=== PATIENT | female | born 1990 | race Caucasian/White ===

== ENCOUNTER 2017-01-11 16:37 | Emergency (ER) | payer MEDICAID, OTHER ==
[2017-01-11 17:00] LABS: BILIRUBIN,URINE NEGATIVE (NEGATIVE)
[2017-01-11 17:02] LABS: UA CHARGE (STRIP ONLY) YES; UR CULTURE IF IND NOT INDICATED
[2017-01-11 17:03] LABS: HCG UR QUAL NEGATIVE
[2017-01-11] MEDS ORDERED: KETOROLAC 30 MG/ML VIAL IVP STA (17:07)
--- NOTE | 2017-01-11 17:11 | ED Physician Documentation ---
PD HPI ABD PAIN - Stated complaint Stated Complaint: L ABD PAIN - Chief complaint Chief Complaint: Abd Pain - History obtained from History obtained from: Patient - History of Present Illness Timing - onset: Other (26-year-old G0 with IUD in place for the last 6 months presents with ongoing left pelvic pain that was intermittent but mild before today, today it has been severe. At times it doubles her over and when it is severe she feels nauseous. There is no associated fever. She has had some spotting but that is not abnormal since she has had the IUD put in.) Review of Systems Constitutional: denies: Fever, Chills GI: denies: Vomiting, Diarrhea : denies: Dysuria, Frequency, Hematuria, Discharge PD PAST MEDICAL HISTORY - Past Medical History Past Medical History: No - Past Surgical History Past Surgical History: No - Allergies Allergies/Adverse Reactions: Allergies Allergy/AdvReac Type Severity Reaction Status Date / Time hydrocodone bitartrate * AdvReac Emesis Verified 01/11/17 16:51 [From Vicodin] oxycodone HCl * AdvReac Emesis Verified 01/11/17 16:51 [From Percocet] - Social History Does the pt smoke?: No Smoking Status: Never smoker Does the pt drink ETOH?: No Does the pt have substance abuse?: No - Immunizations Immunizations are current?: Yes PD ED PE NORMAL - Vitals Vital signs reviewed: Yes - General General: Alert and oriented X 3, Other (Intermittently overtly in pain, otherwise sometimes comfortable) - Cardiac Cardiac: RRR, No murmur - Respiratory Respiratory: No respiratory distress, Clear bilaterally - Abdomen Abdomen: Normal bowel sounds, Soft, Other (Tenderness at the left anterior pelvic brim without surgical signs) - Female Female : Slash Trimmer present (Mikhail Morales RN), Other (Some bloody purulent discharge but no cervical motion or adnexal tenderness.) - Extremities Extremities: No deformity, No tenderness to palpate, No edema, No calf tenderness / cord - Neuro Neuro: Alert and oriented X 3, Normal speech - Psych Psych: Normal mood, Normal affect Results - Vitals Vitals: Vital Signs - 24 hr 01/11/17 01/11/17 16:44 18:40 Temperature 36.8 C Heart Rate 83 74 Respiratory 20 16 Rate Blood Pressure 142/79 H 117/75 O2 Saturation 98 97 Oxygen O2 Source Room air - Labs Labs: Laboratory Tests 01/11/17 01/11/17 01/11/17 16:54 17:36 17:36 WBC 7.9 RBC 4.74 Hgb 14.5 Hct 41.4 MCV 87.3 MCH 30.5 MCHC 34.9 RDW 12.6 Plt Count 200 MPV 8.7 Neut # 5.1 Lymph # 2.2 Baxter # 0.3 Eos # 0.2 Baso # 0.1 Absolute Nucleated RBC 0.00 Nucleated RBCs 0.1 Sodium 137 Potassium 3.8 Chloride 104 Carbon Dioxide 27 Anion Gap 6.0 BUN 9 Creatinine 0.8 Estimated GFR (MDRD) 87 L Glucose 100 Calcium 9.1 Total Bilirubin 0.4 AST 17 ALT 13 Alkaline Phosphatase 51 Total Protein 7.1 Albumin 4.5 Globulin 2.6 Albumin/Globulin Ratio 1.7 Lipase 31 Urine Color YELLOW Urine Clarity CLEAR Urine pH 6.0 Ur Specific [place] >=1.030 H Urine Protein NEGATIVE Urine Glucose (UA) NEGATIVE Urine Ketones NEGATIVE Urine Occult Blood TRACE-INTA Urine Nitrite NEGATIVE Urine Bilirubin NEGATIVE Urine Urobilinogen 0.2 (NORMAL) Ur Leukocyte Esterase NEGATIVE Ur Microscopic Review NOT INDICATED Urine Culture Comments NOT INDICATED Urine HCG, Qual NEGATIVE - Rads (name of study) Pelvic Sono Radiology: EMP read contemporaneously (IUD in the endometrium with prominent surrounding vascularity) PD MEDICAL DECISION MAKING - ED course ED course: 26-year-old woman in a monogamous relationship with an IUD in place presents with worsening chronic left pelvic cramping. Pelvic ultrasound as shown. At her request the IUD was removed during pelvic examination, she thinks that is the source. There is no evidence of significant infection,/PID. She declines prescription pain medication. Departure - Departure Disposition: 01 Home, Self Care Clinical Impression: Pelvic pain, Encounter for IUD removal Condition: Good Record reviewed to determine appropriate education?: Yes Instructions: ED Pelvic Pain [facility] Comments: Tylenol or ibuprofen as needed for pain. Return if worse or if not better in 12 hours.
[2017-01-11] MEDS ORDERED: KETOROLAC 30 MG/ML VIAL ONE (17:26)
[2017-01-11 17:58] LABS: BASOPHILS # (AUTO) 0.1 10^3/uL (0.0-0.1); BASOPHILS % (AUTO) 0.6 %; EOSINOPHILS # (AUTO) 0.2 10^3/uL (0.0-0.7); EOSINOPHILS % (AUTO) 3.1 %; HCT - HEMATOCRIT 41.4 % (37.0-47.0); HGB - HEMOGLOBIN 14.5 g/dL (12.0-16.0); LYMPHOCYTES # (AUTO) 2.2 10^3/uL (1.5-3.5); LYMPHOCYTES % (AUTO) 28.2 %; MEAN CORPUSCULAR HEMOGLOBIN 30.5 pg (27.0-31.0); MEAN CORPUSCULAR HGB CONC 34.9 g/dL (32.0-36.0); MEAN CORPUSCULAR VOLUME 87.3 fL (81.0-99.0); MEAN PLATELET VOLUME 8.7 fL (7.9-10.8); MONOCYTES # (AUTO) 0.3 10^3/uL (0.0-1.0); MONOCYTES % (AUTO) 4.1 %; NEUTROPHILS # (AUTO) 5.1 10^3/uL (1.5-6.6); NUCLEATED RED BLOOD CELLS AUTO 0.1 /100WBC; RED BLOOD COUNT 4.74 10^6/uL (4.20-5.40); RED CELL DISTRIBUTION WIDTH 12.6 % (12.0-15.0); UNCORRECTED WHITE BLOOD COUNT 7.9 x10^3/uL; WHITE BLOOD COUNT 7.9 x10^3/uL (4.8-10.8)
[2017-01-11 18:16] LABS: ALBUMIN/GLOBULIN RATIO 1.7 (1.0-2.2); BILIRUBIN,TOTAL 0.4 mg/dL (0.2-1.0); CALCIUM 9.1 mg/dL (8.5-10.3); CREATININE 0.8 mg/dL (0.4-1.0); POTASSIUM 3.8 mmol/L (3.5-5.0); TOTAL PROTEIN 7.1 g/dL (6.7-8.2)
--- NOTE | 2017-01-11 19:09 | Ultrasound Preliminary Report ---
Exam: US Pelvic Non OB w/Doppler IMPRESSION: IUD in the endometrium, with prominent surrounding vascularity. This could represent infl ammation or vascular malformation. Otherwise unremarkable pelvic ultrasound. [facility] SITE ID: [id number]
--- NOTE | 2017-01-11 19:11 | Ultrasound Report ---
REVISED: THIS REPORT WAS ORIGINALLY SIGNED ON 01/11/2017 @ 1911. ORDERS LINKED ON 01/17/2017. EXAM: PELVIC ULTRASOUND EXAM DATE: 01/11/2017 06:40 PM. CLINICAL HISTORY: Pelvic pain. COMPARISON: None. TECHNIQUE: Realtime transabdominal pelvic scan performed to identify the uterus and adnexa and as an overview of other pelvic structures, followed by transvaginal scan to provide greater detail of the uterus and adnexa, with static image documentation. FINDINGS: Uterus: 8.2 x 4.4 x 5.0 cm, volume 94.5 cc. Anteverted position. Normal overall size and echotexture. Masses: None. Endometrium: [address] Increasing surrounding vascularity. Cervix: Trace fluid, otherwise unremarkable. Right Ovary: 2.3 x 1.4 x 1.8 cm, volume 3.2 cc. Normal echotexture and blood flow. Left Ovary: 3.6 x 2.7 x 2.3 cm, volume 11.9 cc. Normal echotexture and blood flow. Dominant follicle measures 1.9 x 1.1 x 1.4 cm. Free Fluid: None. Other: None. IMPRESSION: IUD in the endometrium, with prominent surrounding vascularity. This could represent inflammation or vascular malformation. Otherwise unremarkable pelvic ultrasound. [facility] Referring Provider Line: [phone] SITE ID: [id number]
[2017-01-11 19:59] VITALS: BP 117/74
== END 2017-01-11 19:54 | disposition home or self-care (01) ==
LOC: ED 16:37
DX: R10.2 Pelvic and perineal pain (principal); Z30.432 Encounter for removal of intrauterine contraceptive device
CPT/HCPCS: 36415; 58301; 76830; 76856; 80053; 81001; 81003; 81025; 83690; 85025; 87086; 87491; 87591; 93975; 96374; 99283